=== PATIENT | female | born 1930 | race Caucasian/White ===

== ENCOUNTER 2018-08-26 10:59 | Outpatient (CLI) | payer MEDICARE ==
--- NOTE | 2018-08-26 14:05 | CT ---
CT THORAX WITH CONTRAST: DATE: 08/26/2018. HISTORY: An 87-year-old female with pulmonary nodule. COMPARISON: No prior chest CTs. There is no mention of pulmonary nodule on recent plain chest radiograph reports . TECHNIQUE: IV iodinated contrast media: Isovue 370. 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 Multiple surgical clips in the left axilla. Generator for dual-lead right wallace bclavian pacemaker located anterior to the right pectoralis major. Lead tips in right atrial appenda ge and right ventricle near apex. No cardiomegaly. Heavy atherosclerotic calcification of LAD, and to a lesser degree LCX. No thoracic aortic aneurysm or dissection. No significant mediastinal or hi lar lymphadenopathy. Tortuosity of lower portion of descending thoracic aorta. 3.5 x 3 x 3.5 cm ped unculated, exophytic mass protruding from posterior surface of right renal upper-mid pole, with eggsh ell rim calcification, and mixed internal contents of soft tissue attenuation and fat attenuation. S pleen is enlarged. Small sliding hiatal hernia. No pleural effusion, pneumothorax, or pericardial e ffusion. No suspicious pulmonary nodules, pulmonary edema, consolidation, or bullae. Nonspecific mi ld streaky interstitial densities at left lower lobe. Exaggerated kyphosis of lower thoracic spine. Vertebral body heights are maintained. IMPRESSION: 1. 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 2. No evidence of pulmonary metastasis. 3. Splenomegaly. 4. Coronary atherosclerosis due to calcified coronary lesion, ICD-10: I25.84. 5. Thoracic spondylosis with multilevel mild to moderate degenerative disk disease and exaggerated k yphosis, of lower thoracic spine. 6. Small sliding hiatal hernia. 7. Pedunculated angiomyolipoma of right kidney. ALEYDA R POS: [facility]
== END 2018-08-26 11:00 | disposition home or self-care (01) ==
LOC: BICCT 10:59
PROVIDERS: ATTEND Family Medicine
DX: R91.1 Solitary pulmonary nodule (principal); R16.1 Splenomegaly, not elsewhere classified; K44.9 Diaphragmatic hernia without obstruction or gangrene; D17.71 Benign lipomatous neoplasm of kidney; M47.814 Spondylosis without myelopathy or radiculopathy, thoracic region; M51.34 Other intervertebral disc degeneration, thoracic region; I25.84 Coronary atherosclerosis due to calcified coronary lesion; Z90.12 Acquired absence of left breast and nipple
CPT/HCPCS: 71260; 82565

== ENCOUNTER 2018-09-23 10:21 | Outpatient (CLI) | payer MEDICARE ==
--- NOTE | 2018-09-23 11:05 | CT ---
CT Brain WO Con: 09/23/2018 12:00 AM CLINICAL HISTORY: Chronic sinusitis. COMPARISON: None. FINDINGS: Hemorrhage: None. Ventricular system: Age-appropriate in size and morphology for the patient's age. Cerebral parenchyma: Microvascular ischemic disease Midline shift: None. Mass: No mass effect. Calvarium: Normal. Visualized Paranasal sinuses: Scattered mild inflammatory mucosal thickening and fluid. IMPRESSION: No acute intracranial abnormalities. 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
--- NOTE | 2018-09-23 11:50 | CT ---
CT Sinuses WO Con INDICATION: Sinusitis COMPARISON: None FINDINGS: Maxillary sinuses: Significant opacification of the bilateral maxillary sinuses by circumferential mu cosal thickening. Evidence to indicate prior maxillary antrostomies bilaterally. Correlate with surgical history. Frontal sinus: Aplastic frontal sinus with mucosal thickening, more notable on the right, which opaci fies the frontal ethmoidal recess. Sphenoid sinus: Mucosal thickening, inspissated secretions, and fluid level. Ethmoid sinus: Prominent opacification of bilateral ethmoid air cells. Nasal Septum: No significant deviation. Incidental findings: None of significance. IMPRESSION: 1. Diffuse opacification of paranasal sinuses. There is fluid level within the sphenoid sinus which may therefore relate to acute on chronic sinusitis. 2. Aplastic frontal sinus. Transcribed Date/Time: 09/23/2018 12:06 PM
== END 2018-09-23 10:22 | disposition home or self-care (01) ==
LOC: BICCT 10:21
PROVIDERS: ATTEND Otolaryngology Plastic Surgery within the Head & Neck
DX: J32.9 Chronic sinusitis, unspecified (principal); R51 Headache; J34.89 Other specified disorders of nose and nasal sinuses; R90.82 White matter disease, unspecified; Z85.3 Personal history of malignant neoplasm of breast
CPT/HCPCS: 70450